=== PATIENT | male | born 1980 | race African-American/Black ===

== ENCOUNTER 2017-01-27 14:30 | Emergency (ER) | payer SELFPAY ==
[~2017-01-27] VITALS: Ht 185.4 cm; Wt 80.0 kg
[~2017-01-27 14:30] MED LIST: ZITH250T PO
[2017-01-27 14:31] VITALS: BP 131/67; PULSE 83; RESP 15; TEMP 98.6; O2SAT 99
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
[2017-01-27] MEDS ORDERED: SODIUM CHLOR 0.9% 1000 ML INJ 1,000 ML IV SCH (15:04)
[2017-01-27] MEDS ORDERED: ONDANSETRON HCL 4 MG/2 ML VIAL IVP ONE (15:15)
[2017-01-27] MEDS ORDERED: FAMOTIDINE 20 MG/2 ML VIAL IV PUSH ONE (15:15)
[2017-01-27] MEDS ORDERED: DICYCLOMINE HCL 10 MG CAP PO ONE (15:15)
[2017-01-27 15:30] LABS: AUTOMATED NEUTROPHIL # 7.7 TH/MM3 (1.8-7.7); BASOPHIL % 0.1 % (0.0-2.0); EOSINOPHIL # 0.2 TH/MM3 (0-0.4); EOSINOPHIL % 2.1 % (0.0-4.0); HEMATOCRIT 44.7 % (39.0-51.0); HEMO FLAGS DIFF FINAL; LYMPH % 14.2 % (9.0-44.0); LYMPHOCYTE # 1.4 TH/MM3 (1.0-4.8); MEAN CELL VOLUME 91.4 FL (80.0-100.0); MEAN CORPUSCULAR HEMOGLOBIN 31.4 PG (27.0-34.0); MEAN CORPUSCULAR HGB CONC 34.4 % (32.0-36.0); MONO % 6.5 % (0.0-8.0); NEUT % 77.1 % (16.0-70.0); PLATELET COUNT 263 TH/MM3 (150-450); RED BLOOD COUNT 4.89 MIL/MM3 (4.50-5.90); RED CELL DISTRIBUTION WIDTH 13.2 % (11.6-17.2)
[2017-01-27 15:58] LABS: ALT (GPT) 20 U/L (12-78)
[2017-01-27 16:01] LABS: ALKALINE PHOSPHATASE 52 U/L (45-117); ANION GAP 6 MEQ/L (5-15); AST (GOT) 23 U/L (15-37); BICARBONATE 27.7 MEQ/L (21.0-32.0); BLOOD UREA NITROGEN 17 MG/DL (7-18); CHLORIDE 105 MEQ/L (98-107); GLOMERULAR FILTRATION RATE 89 ML/MIN (>89); POTASSIUM 4.1 MEQ/L (3.5-5.1); SODIUM (NA) 139 MEQ/L (136-145); TOTAL BILIRUBIN ADULT 0.6 MG/DL (0.2-1.0)
[2017-01-27] MEDS ORDERED: ZOFR4TAB PO (16:03)
[2017-01-27] MEDS ORDERED: LOMO2.5T PO (16:03)
--- NOTE | 2017-01-27 16:10 | PD ---
Data Data Last Documented VS Vital Signs Date Time Temp Pulse Resp B/P Pulse Ox O2 Delivery O2 Flow Rate FiO2 01/27/17 14:31 98.6 83 15 131/67 99 Orders Complete Blood Count With Diff (01/27/17 15:04) Comprehensive Metabolic Panel (01/27/17 15:04) Lipase (01/27/17 15:04) Iv Access Insert/Monitor (01/27/17 15:04) Ondansetron Inj (Zofran Inj) (01/27/17 15:15) Sodium Chlor 0.9% 1000 Ml Inj (Ns 1000 M (01/27/17 15:04) Famotidine Inj (Pepcid Inj) (01/27/17 15:15) Dicyclomine (Bentyl) (01/27/17 15:15) Labs Laboratory Tests Test 01/27/17 15:10 White Blood Count 10.0 TH/MM3 Red Blood Count 4.89 MIL/MM3 Hemoglobin 15.4 GM/DL Hematocrit 44.7 % Mean Corpuscular Volume 91.4 FL Mean Corpuscular Hemoglobin 31.4 PG Mean Corpuscular Hemoglobin 34.4 % Concent Red Cell Distribution Width 13.2 % Platelet Count 263 TH/MM3 Mean Platelet Volume 7.2 FL Neutrophils (%) (Auto) 77.1 % Lymphocytes (%) (Auto) 14.2 % Monocytes (%) (Auto) 6.5 % Eosinophils (%) (Auto) 2.1 % Basophils (%) (Auto) 0.1 % Neutrophils # (Auto) 7.7 TH/MM3 Lymphocytes # (Auto) 1.4 TH/MM3 Monocytes # (Auto) 0.7 TH/MM3 Eosinophils # (Auto) 0.2 TH/MM3 Basophils # (Auto) 0.0 TH/MM3 CBC Comment DIFF FINAL Differential Comment Sodium Level 139 MEQ/L Potassium Level 4.1 MEQ/L Chloride Level 105 MEQ/L Carbon Dioxide Level 27.7 MEQ/L Anion Gap 6 MEQ/L Blood Urea Nitrogen 17 MG/DL Creatinine 1.13 MG/DL Estimat Glomerular Filtration 89 ML/MIN Rate Random Glucose 107 MG/DL Calcium Level 8.8 MG/DL Total Bilirubin 0.6 MG/DL Aspartate Amino Transf 23 U/L (AST/SGOT) Alanine Aminotransferase 20 U/L (ALT/SGPT) Alkaline Phosphatase 52 U/L Total Protein 7.5 GM/DL Albumin 3.9 GM/DL Lipase 305 U/L MDM Supervised Visit with SOLITARIO: Yes Narrative Course The history, exam, and medical decision-making in the associated midlevel provider note were completed with my assistance. I reviewed and agree with the findings presented. I attest that I had a [id number] encounter with the patient on the same day, and personally performed and documented my assessment and findings in the medical record. *My assessment and Findings: This is a 36-year-old male who presents to the emergency department with some abdominal discomfort on the left side and some loose stools. He said he ate some questionable wasters yesterday. He looks very well and he says he feels back to normal. Labs are unremarkable. I suspect the patient had some food poisoning. He'll be discharged home. Diagnosis Primary Impression: Gastroenteritis Patient Instructions: General Instructions Departure Forms: Work Release, Enter return to work date: Tests/Procedures Additional Instruction: Take medication as prescribed. Liquid diet. Follow with PCP. See ED worsening symptoms. Scripts Diphenoxylate-Atropine (Lomotil)2.5-0.025 Mg Tab1 Tab PO Q6H PRN (DIARRHEA) #14 TAB Ref 0 Prov:Juliet Juarez MD 01/27/17 Ondansetron (Zofran)4 Mg Tab4 Mg PO Q6HR PRN (NAUSEA OR VOMITING) #20 TAB Prov:Juliet Juarez MD 01/27/17 Disposition: 01 DISCHARGE HOME Condition: Stable Juliet Juarez MD Jan 27, 2017 16:10
== END 2017-01-27 18:01 | disposition home or self-care (01) ==
LOC: NEPC 14:30
DX: K52.9 Noninfective gastroenteritis and colitis, unspecified (principal)
CPT/HCPCS: 80053; 83690; 85025; 96361; 96374; 96375; 99284; J2405; J7030